=== PATIENT | female | born 1995 | race American Indian/Alaskan Native ===

== ENCOUNTER 2020-05-27 09:58 | Emergency (ER) | payer SELFPAY ==
[2020-05-27 10:03] VITALS: BMI 17.9
--- NOTE | 2020-05-27 10:30 | PDOC ---
History of Present Illness - General Chief Complaint: Urinary Problem Stated Complaint: FEVER/R/O UTI Time Seen by Provider: 05/27/20 10:30 History Source: Patient Exam Limitations: No Limitations - History of Present Illness Initial Comments: 05/27/20 10:55 24y previously healthy F presenting w 2wk dysuria, 2d subjective fevers, L flank pain, vaginal itching. Taking tylenol w/o relief. LMP 6/16. Denies cough, n/v, chest pain, SOB, diarrhea/constipation, vaginal discharge/bleeding. Past History - Medical History Allergies/Adverse Reactions: Allergies Allergy/AdvReac Type Severity Reaction Status Date / Time No Known Allergies Allergy Verified 05/27/20 10:03 Home Medications: Ambulatory Orders Cephalexin [Keflex] 500 mg PO QID 14 Days #56 capsule 05/27/20 COPD: No - Reproductive History Is Patient Now?: No - Psycho-Social/Smoking History Smoking History: Never smoked - Substance Abuse Hx (Audit-C & DAST Scrn) How often the patient has a drink containing alcohol: Never Score: In Men: 4 or > Positive; In Women: 3 or > Positive: 0 Screen Result (Pos requires Nsg. Audit-10AR): Negative Review of Systems - Review of Systems Constitutional: Yes: Fever. No: Chills HEENTM: No: Eye Pain, Ear Discharge Respiratory: No: Cough, Shortness of Breath Cardiac (ROS): No: Chest Pain, Lightheadedness ABD/GI: No: Abdominal Distended, Constipated, Diarrhea, Nausea, Vomiting : Yes: Burning, Flank Pain Musculoskeletal: No: Back Pain, Joint Pain Integumentary: No: Bruising, Dryness Neurological: No: Headache, Seizure Psychiatric: No: Anxiety, Depression Endocrine: No: Intolerance to Cold, Intolerance to Heat Hematologic/Lymphatic: No: Anemia, Blood Clots *Physical Exam - Vital Signs Last Vital Signs Temp Pulse Resp BP Pulse Ox 99.2 F 107 H 18 110/69 99 05/27/20 10:00 05/27/20 10:00 05/27/20 10:00 05/27/20 10:05/27/20 10:00 - Physical Exam General Appearance: Yes: Nourished, Appropriately Dressed, Mild Distress HEENT: positive: EOMI, MARIBETH, Normal Voice, Hearing Grossly Normal. negative: Scleral Icterus (R), Scleral Icterus (L) Respiratory/Chest: positive: Lungs Clear, Normal Breath Sounds. negative: Chest Tender, Respiratory Distress Cardiovascular: positive: Regular Rhythm, S1, S2, Tachycardia. negative: Edema, Murmur Female Pelvic Exam: positive: normal external exam, cervical os closed, discharge (white physiologic). negative: CMT, adnexal tenderness, vaginal bleeding Gastrointestinal/Abdominal: positive: Normal Bowel Sounds, Tender (mild L f lank), Flat, Soft. negative: Organomegaly, Distended, Guarding, Rebound, Mass Integumentary: positive: Normal Color, Warm Neurologic: positive: Fully Oriented, Alert, Normal Response ED Treatment Course - LABORATORY CBC & Chemistry Diagram: 05/27/20 11:20 05/27/20 11:20 Medical Decision Making - Medical Decision Making 05/27/20 11:17 pelvic exam - white physiologic discharge, no discharge from cervical os, no lesions external labial folds or within vaginal vault, no bleeding, normal closed cervical os --- 24y previously healthy F presenting w 2wk dysuria, 2d subjective fevers, L flank pain, vaginal itching d/t pyelonephritis. Pending chlamydia/john. Not . Given 1L NS, tylenol, rocephin DC w keflex, PCP f/u Discharge - Discharge Information Problems reviewed: Yes Clinical Impression/Diagnosis: Pyelonephritis Condition: Improved Disposition: HOME - Additional Discharge Information Prescriptions: Cephalexin [Keflex] 500 mg PO QID 14 Days #56 capsule - Follow up/Referral Referrals: Narendra Garcia MD [Staff Physician] - CallBack Reminder: [email or web address] results - Patient Discharge Instructions Patient Printed Discharge Instructions: DI for Urinary Tract Infection (UTI) Additional Instructions: You have a urine infection Take tylenol or ibuprofen if you have pain or fever Take the prescribed Keflex as directed Follow up with the referred primary care doctor Dr Garcia. - Post Discharge Activity
[2020-05-27 10:57] LABS: HCG,QUALITATIVE URINE Negative
[2020-05-27 11:05] LABS: EPI CELLS 20 /uL (0-25.1); HYALINE CASTS 7 /uL (0-3.1); URINE APPEARANCE CLOUDY; URINE BILIRUBIN NEGATIVE (NEGATIVE); URINE COLOR YELLOW; URINE GLUCOSE (UA) NEGATIVE (NEGATIVE); URINE KETONE NEGATIVE (NEGATIVE); URINE LEUK ESTERASE 2+ (NEGATIVE); URINE NITRITE POSITIVE (NEGATIVE); URINE PROTEIN NEGATIVE (NEGATIVE); URINE RBC 13 /uL (0-23.9); URINE UROBILINOGEN 0.2 mg/dL (0.2-1.0); URINE WBC 234 /uL (0-25.8)
[2020-05-27] MEDS ORDERED: SODIUM CHLORIDE 0.9% 500 ML INFUS.BAG IV ONE (11:06)
[2020-05-27] MEDS ORDERED: ACETAMINOPHEN 500 MG TABLET (FP) PO ONE (11:07)
[2020-05-27] MEDS ORDERED: ACETAMINOPHEN 325 MG TABLET (FP) ONE (11:11)
--- NOTE | 2020-05-27 11:50 | PDOC ---
Documentation entered by Chely Reeves SCRIBE, acting as scribe for Becki Correa MD. Becki Correa MD: This documentation has been prepared by the Natalie stallings Nirvannie, SCRIBE, under my direction and personally reviewed by me in its entirety. I confirm that the documentation accurately reflects all work, treatment, procedures, and medical decision making performed by me. Attending Attestation - Resident Resident Name: Pavan Mckenzie - ED Attending Attestation I have performed the following: I have examined & evaluated the patient, The case was reviewed & discussed with the resident, I agree w/resident's findings & plan, Exceptions are as noted - HPI HPI: 05/27/20 11:39 The patient is a 24 year old female with no significant past medical history who presents to the ED with 2 weeks of urinary frequency and associated left flank pain and 2 days of new onset fevers (102F). Patient notes associated vaginal itching without abnormal discharge. Patient endorses taking Tylenol (did not take anything today), without relief, prompting her arrival to the ED. She denies any vaginal bleeding. She denies any nausea or vomiting. Allergies: NKDA LMP: 16 - Physicial Exam PE: 05/27/20 11:46 awake alert lungs clear bilat heart reg tachycardia. no mrg abd soft mild suprapubic ttp. no rebound no guarding. left cva tenderness. ext wwp. skin warm and dry no rash. alert oriented x 3. - Medical Decision Making 05/27/20 11:48 24yo F with no pmhx here with c/o left flank pain , no hematuria. constant dull achyc, urinary frequency vaginal itching and fever 102 x 2 days. unsure if . has been trying to get . no n/v no other complaints. no mo factors. no radiation to her pain. on exam mils suprapubic ttp. left cva tenderness. differential uti pyelo, std considered. less likely. ( no CMT on dr mckenzie pelvic exam) ua urine cultures. labs ivf tylenol for pain and low grade fever will obtain renal us r/o hydro Discharge - Discharge Information Problems reviewed: Yes Clinical Impression/Diagnosis: Pyelonephritis Condition: Improved Disposition: HOME - Additional Discharge Information Prescriptions: Cephalexin [Keflex] 500 mg PO QID 14 Days #56 capsule - Follow up/Referral Referrals: Narendra Garcia MD [Staff Physician] - CallBack Reminder: [email or web address] results - Patient Discharge Instructions Patient Printed Discharge Instructions: DI for Urinary Tract Infection (UTI) Additional Instructions: You have a urine infection Take tylenol or ibuprofen if you have pain or fever Take the prescribed Keflex as directed Follow up with the referred primary care doctor Dr Garcia. - Post Discharge Activity
[2020-05-27 11:54] LABS: ALBUMIN 3.5 g/dl (3.4-5.0); BILIRUBIN,TOTAL 0.2 mg/dL (0.2-1); BLOOD UREA NITROGEN 7.4 mg/dL (7-18); CALCIUM 9.1 mg/dL (8.5-10.1); CREATININE 0.6 mg/dL (0.55-1.3); POTASSIUM 4.5 mmol/L (3.5-5.1); TOT PROT 7.8 g/dl (6.4-8.2)
[2020-05-27 11:56] LABS: BASO % 0.1 % (0-2.0); EOS % 0.9 % (0-4.5); HEMATOCRIT 32.6 % (32.4-45.2); HEMOGLOBIN 9.6 GM/dL (10.7-15.3); LYMPH % 16.9 % (8-40); MCHC 29.5 g/dl (32.0-36.0); MEAN CELL VOLUME 62.9 fl (80-96); MEAN PLT VOLUME 10.3 fl (7.5-11.1); MONO % 7.8 % (3.8-10.2); NEUT % 74.3 % (42.8-82.8); PLATELET COUNT 183 K/MM3 (134-434); RBC 5.19 M/mm3 (3.60-5.2); RDW 21.4 % (11.6-15.6); WHITE BLOOD COUNT 14.4 K/mm3 (4.0-10.0)
[2020-05-27 11:57] LABS: MCH 18.6 pg (25.7-33.7)
[2020-05-27] MEDS ORDERED: CEFTRIAXONE 1 GM in DEXTROSE 5%-WATER - 100 ML IVPB ONE (12:00)
[2020-05-27] MEDS ORDERED: CEFTRIAXONE 1 GM/50 ML BAG ONE (12:11)
[2020-05-27 12:53] LABS: ANISOCYTOSIS 1+; MACROCYTOSIS 0; PLATELET ESTIMATE NORMAL
[2020-05-27 13:17] VITALS: BP 100/64; PULSE 87; TEMP 98.7
== END 2020-05-27 13:33 | disposition home or self-care (01) ==
LOC: JER 09:58
PROC: 3E033GC Introduction of Other Therapeutic Substance into Peripheral Vein, Percutaneous Approach (ICD-10-PCS; principal; 2020-05-27)
DX: N12 Tubulo-interstitial nephritis, not specified as acute or chronic (principal)
CPT/HCPCS: 36415; 76775; 80053; 81003; 83690; 84703; 85025; 87086; 87186; 87491; 87591; 99284-25